=== PATIENT | female | born 1960 | race Caucasian/White ===

== ENCOUNTER 2021-02-06 10:13 | Outpatient (REF) | payer OTHER, SELFPAY ==
[2021-02-06 11:56] LABS: Anion Gap 11 (12-20); Blood Urea Nitrogen 14 mg/dL (9-16); Calcium 9.4 mg/dL (8.4-10.2); Carbon Dioxide 32 mmol/L (22-29); Chloride 102 mmol/L (96-108); Cholesterol 221 mg/dL; Estimated Glomerular Filt Rate > 60; Glucose Random 93 mg/dL (60-115); HDL Cholesterol 59 mg/dL; LDL Cholesterol Calculated 149 mg/dl; Potassium 3.8 mmol/L (3.3-5.1); Sodium 141 mmol/L (135-145); Triglycerides 65 mg/dL
[2021-02-06 12:17] LABS: Free T4 (Free Thyroxine) 1.17 ng/dL (0.71-1.85); Thyroid Stimulating Hormone 0.32 uIU/mL (0.32-4.0)
== END 2021-02-06 10:14 | disposition home or self-care (01) ==
LOC: HO.HMGCLDS 10:13
PROVIDERS: PCP Internal Medicine; Visit Provider Internal Medicine
DX: E03.9 Hypothyroidism, unspecified (principal); I10 Essential (primary) hypertension
CPT/HCPCS: 36415; 80048; 80061; 84439; 84443

== ENCOUNTER 2021-03-19 15:24 | Outpatient (REF) | payer OTHER, SELFPAY ==
--- NOTE | ~2021-03-19 | US_ITS ---
EXAMINATION: US PELVIS CLINICAL INFORMATION: Right ovarian cyst COMPARISON: Previous pelvic ultrasound most recent November 2008 TECHNIQUE: Transabdominal pelvic ultrasound was performed. Patient refused transvaginal exam. FINDINGS: Uterus: The uterus is anteverted and measures 8.5 x 3.7 x 4.6 cm. The double wall endometrial thickness is 11 mm. This is abnormally thickened for a postmenopausal patient. The uterus is smooth in contour and has normal myometrial echogenicity. No visible fibroid. Adnexa: The right ovary is enlarged and measures 8.3 x 5.5 x 6.1 cm, volume 1 4 6 mL. There is a 7.4 x 4.8 x 5.3 cm minimally complex right ovarian cyst with area of wall thickening. This appears increased in size from previous exam November 2008 when this measured 5 x 3.4 x 3.5 cm. This appears less complex than seen on November 2008 exam. The left ovary is not seen. There is no fluid in the pelvis. US/US pelvic complete IMPRESSION: 7.4 x 4.8 x 5.3 cm minimally complex right ovarian cyst. This is increased in size from November 2008 when this measured 5 x 3.4 x 5 cm. Left ovary not seen. Thickened endometrium for a postmenopausal patient measuring 11 mm transabdominally. Patient refused transvaginal exam. Endometrial tissue sampling should be considered.
== END 2021-03-19 15:25 | disposition home or self-care (01) ==
LOC: HO.US 15:24
PROVIDERS: Visit Provider Advanced Practice Midwife
DX: R10.2 Pelvic and perineal pain (principal); N83.291 Other ovarian cyst, right side
CPT/HCPCS: 76856

== ENCOUNTER 2021-09-03 13:06 | Outpatient (REF) | payer OTHER, SELFPAY ==
--- NOTE | ~2021-09-03 | MM_ITS ---
EXAMINATION: MM SCREENING DIGITAL BREAST TOMOSYNTHESIS, BILATERAL CLINICAL INFORMATION: Screening. Asymptomatic. The lifetime risk of breast cancer based on the Tyrer-Cuzick Model is 8%. COMPARISON: Mammography: 06/07/2019, 05/22/2018, 04/28/2017 TECHNIQUE: Digital breast tomosynthesis is performed in both the craniocaudal and mediolateral oblique views along with computer-aided detection (CAD). Synthesized 2D images are generated from the tomosynthesis. FINDINGS: There are scattered areas of fibroglandular density (ACR BI-RADS breast composition Category b). There are no significant masses, abnormal calcifications, or other abnormalities. Parenchymal pattern is similar to prior studies. No developing density. No architectural abnormality or significant changes. MM/MM tomosynthesis screening BI IMPRESSION: No mammographic evidence of malignancy. ASSESSMENT: BI-RADS 1: Negative RECOMMENDATION: Routine annual mammography screening. This patient's information was entered into a reminder system with a target due date for their next mammogram.
== END 2021-09-03 13:07 | disposition home or self-care (01) ==
LOC: HO.MAMMO 13:06
PROVIDERS: PCP Internal Medicine; Visit Provider Internal Medicine
DX: Z12.31 Encounter for screening mammogram for malignant neoplasm of breast (principal)
CPT/HCPCS: 77063; 77067